=== PATIENT | male | born 1950 | race African-American/Black ===

== ENCOUNTER 2017-01-24 11:25 | Inpatient (IN) ==
[2017-01-24] MEDS ORDERED: ASPIRIN PO STA (11:34)
[2017-01-24] MEDS ORDERED: LASIX IV ONE (11:52)
[2017-01-24] MEDS ORDERED: NITROGLYCERIN TOP ONE (11:52)
--- NOTE | 2017-01-24 11:56 | PROVIDER DOCUMENTATION ---
HPI-Cardiac General - General Chief Complaint: Shortness of Breath Stated Complaint: SENT BY MD FOR EVAL Time Seen by Provider: 01/24/17 11:33 Source: patient, family Allergies/Adverse Reactions: Patient Allergies Allergy/AdvReac Type Severity Reaction Status Date / Time No Known Allergies Allergy Verified 01/24/17 12:13 Home Medications: Home Medication List Medication Instructions Recorded Confirmed Last Taken Type Aspirin [Aspirin EC] 81 mg PO DAILY 01/24/17 01/24/17 01/24/17 06:00 History Carvedilol [Coreg] 3.125 mg PO BID 01/24/17 01/24/17 01/24/17 06:00 History - History of Present Illness-Cardiac Nature of Presenting Problem: Patient is a 66 y/o M that presents with about a month of shortness of breath and chest heaviness. patient [place] [facility] [place] and been evaluated by who sent patient in today for admission to hospitalist for work up of possible heart failure. Patient has been have leg swelling (more on right leg) and has fatigue in which he has been falling asleep more. Denies fever/chills, back pain, or n/v Location: reports: substernal Quality of Pain: reports: pressure Severity in ED: moderate Onset/Duration: gradual, other (1 month) Timing: still present, getting worse Context/Activities at Onset: reports: none Modifying Factors: worse with: exercise, lying down, movement Palpitation Quality: N/A History of arrythmia: reports: none Recent use of:: reports: no stimulants Nitro Today/Relief: reports: no nitro taken today Aspirin Treatment Today: reports: no aspirin today Prior Chest Pain/Cardiac Workup: reports: echocardiography (01/16/17 ER of 35 to 40%) Associated Symptoms: reports: shortness of breath. denies: back pain, diaphoresis, dizziness, fatigue, fever/chills, nausea, vomiting Similar Symptoms Previously?: No Recently Seen Here or By Another Healthcare Provider: No Review of Systems - Adult - REVIEW OF SYSTEMS - ADULT Constitutional: denies: chills, fever Eyes: reports: no symptoms reported Ears, Nose, Mouth & Throat: reports: no symptoms reported Cardiovascular: reports: chest pain, edema, orthopnea. denies: palpitations, syncope Respiratory: reports: shortness of breath. denies: cough, wheezing Gastrointestinal: denies: abdominal pain, diarrhea, nausea, vomiting Genitourinary: reports: no symptoms reported Musculoskeletal: denies: back pain, joint pain, neck pain Integumentary: reports: no symptoms reported Neurological: reports: no symptoms reported Psychiatric: reports: no symptoms reported Endocrine: reports: no symptoms reported Hematologic/Lymphatic: reports: no symptoms reported Allergic/Immunologic: reports: no symptoms reported All Other Systems: Reviewed and Negative Past History - Adult - PAST MEDICAL HISTORY-ADULT Review of Records: reports: Old Records Reviewed, Nursing Assessment Review, Medications Reviewed - PRIOR SURGERIES/PROCEDURES Surgical/Procedure History: reports: reviewed, not pertinent - IMMUNIZATION STATUS Childhood Immunizations: See Nurse Assessment Flu Vaccine: See Nurse Assessment - FAMILY HISTORY Family History: reviewed, not pertinent - SOCIAL HISTORY Living Situation: family Physical Exam-General - PHYSICAL EXAM-ADULT Initial Vital Signs Reviewed: Yes - CONSTITUTIONAL General Appearance: alert, mild distress, moderate distress - EYES Eyes: PERRL/EOMI, pink conjunctivae - HEAD, EARS, NOSE, MOUTH & THROAT HENMT: normocephalic/atraumatic, moist mucous membranes, normal ENT inspection - NECK Neck: full range of motion, normal inspection. negative: lymphadenopathy - RESPIRATORY Respiratory: respiratory distress (mild), accessory muscle use, crackles ( bilateral bases), increased rate - CARDIOVASCULAR Cardiovascular: regular rate, rhythm, no gallop, no murmur - GASTROINTESTINAL (ABDOMEN) Abdominal Exam: normal bowel sounds, non tender, soft - MUSCULOSKELETAL Extremity: no calf tenderness, normal capillary refill, pedal edema (bilateral 1 to 2 plus) - SKIN Integumentary: normal color, warm/dry - NEUROLOGIC Neurologic: grossly normal, no motor/sensory deficits - PSYCHIATRIC Psych/Mental Status: normal mood/affect, normal thought content, normal thought process, oriented x 3 Progress - PLAN OF CARE/RESULTS Progress/Plan/Lab Results: Vital Signs Temp Pulse Resp BP Pulse Ox 01/24/17 12:57 99 01/24/17 11:35 97.7 F 90 16 153/96 99 No Known Allergies Allergy (Verified 01/24/17 12:13) Aspirin [Aspirin EC] 81 mg PO DAILY 01/24/17 Carvedilol [Coreg] 3.125 mg PO BID 01/24/17 Laboratory 01/24/17 01/24/17 01/24/17 11:59 11:59 11:59 WBC RBC Hgb Hct MCV MCH MCHC RDW Std Deviation Plt Count MPV Neut % (Auto) Lymph % (Auto) [place] % (Auto) Eos % (Auto) Baso % (Auto) Neut # (Auto) Lymph # (Auto) [place] # (Auto) Eos # (Auto) Baso # (Auto) PT 11.2 INR 1.06 PTT (Actin FS) 31.4 Sodium Potassium Chloride Carbon Dioxide Anion Gap BUN Creatinine Estimated GFR/1.73 m2 BUN/Creatinine Ratio Glucose Calculated Osmolality Calcium Magnesium Total Bilirubin AST ALT Alkaline Phosphatase Creatine Kinase Troponin T < 0.010 Eyg-Y-Ytzntjlcejx Pept 7447 H Total Protein Albumin Globulin Albumin/Globulin Ratio 01/24/17 01/24/17 11:59 11:59 WBC 5.98 RBC 4.61 L Hgb 13.2 L Hct 38.5 L MCV 83.5 MCH 28.6 MCHC 34.3 RDW Std Deviation 14.7 H Plt Count 174 MPV 9.5 Neut % (Auto) 43.8 Lymph % (Auto) 46.7 [place] % (Auto) 6.5 Eos % (Auto) 2.7 Baso % (Auto) 0.3 Neut # (Auto) 2.62 Lymph # (Auto) 2.79 [place] # (Auto) 0.39 Eos # (Auto) 0.16 Baso # (Auto) 0.02 PT INR PTT (Actin FS) Sodium 141 Potassium 4.0 Chloride 103 Carbon Dioxide 25 Anion Gap 13 BUN 17 Creatinine 1.2 Estimated GFR/1.73 m2 > 60 BUN/Creatinine Ratio 14 Glucose 82 Calculated Osmolality 282 Calcium 8.8 Magnesium 2.1 Total Bilirubin 0.35 AST 30 ALT 30 Alkaline Phosphatase 65 Creatine Kinase 80 Troponin T Ncb-L-Bqyptoxxpyo Pept Total Protein 6.2 L Albumin 3.6 Globulin 2.6 Albumin/Globulin Ratio 1.4 Orders Category Date Time Status Cardiac Monitoring DIRECTED Care 01/24/17 11:34 Active Saline Loc NOW Care 01/24/17 11:34 Active cxr [CHEST-PORTABLE] [RAD] Stat Exams 01/24/17 11:35 Draft CBC WITH ELECTRONIC DIFF [HEME] Stat Lab 01/24/17 11:59 Completed CK PROFILE [SP CHEM] Stat Lab 01/24/17 11:59 Completed COMPREHENSIVE METABOLIC PANEL [CHEM] Stat Lab 01/24/17 11:59 Completed MAGNESIUM [CHEM] Stat Lab 01/24/17 11:59 Completed PRO B-NATRIURETIC PEPTIDE Stat Lab 01/24/17 11:59 Completed PROTIME WITH INR [COAG] Stat Lab 01/24/17 11:59 Completed PTT [COAG] Stat Lab 01/24/17 11:59 Completed TROPONIN T Stat Lab 01/24/17 11:59 Completed Aspirin Med 01/24/17 11:34 Discontinued 325 mg PO STAT STA Furosemide [Lasix] Med 01/24/17 11:52 Discontinued 60 mg IV NOW ONE Nitroglycerin Med 01/24/17 11:52 Discontinued 1 inch TOP NOW ONE BIPAP Stat Oth 01/24/17 12:56 Active EKG [EKG] Stat Ther 01/24/17 11:34 Ordered [id number] paged Vital Signs Temp Pulse Resp BP Pulse Ox 01/24/17 12:57 99 01/24/17 11:35 97.7 F 90 16 153/96 99 No Known Allergies Allergy (Verified 01/24/17 12:13) Aspirin [Aspirin EC] 81 mg PO DAILY 01/24/17 Carvedilol [Coreg] 3.125 mg PO BID 01/24/17 Laboratory 01/24/17 01/24/17 01/24/17 11:59 11:59 11:59 WBC RBC Hgb Hct MCV MCH MCHC RDW Std Deviation Plt Count MPV Neut % (Auto) Lymph % (Auto) [place] % (Auto) Eos % (Auto) Baso % (Auto) Neut # (Auto) Lymph # (Auto) [place] # (Auto) Eos # (Auto) Baso # (Auto) PT 11.2 INR 1.06 PTT (Actin FS) 31.4 Sodium Potassium Chloride Carbon Dioxide Anion Gap BUN Creatinine Estimated GFR/1.73 m2 BUN/Creatinine Ratio Glucose Calculated Osmolality Calcium Magnesium Total Bilirubin AST ALT Alkaline Phosphatase Creatine Kinase Troponin T < 0.010 Qyh-D-Xxmjftciruk Pept 7447 H Total Protein Albumin Globulin Albumin/Globulin Ratio 01/24/17 01/24/17 11:59 11:59 WBC 5.98 RBC 4.61 L Hgb 13.2 L Hct 38.5 L MCV 83.5 MCH 28.6 MCHC 34.3 RDW Std Deviation 14.7 H Plt Count 174 MPV 9.5 Neut % (Auto) 43.8 Lymph % (Auto) 46.7 [place] % (Auto) 6.5 Eos % (Auto) 2.7 Baso % (Auto) 0.3 Neut # (Auto) 2.62 Lymph # (Auto) 2.79 [place] # (Auto) 0.39 Eos # (Auto) 0.16 Baso # (Auto) 0.02 PT INR PTT (Actin FS) Sodium 141 Potassium 4.0 Chloride 103 Carbon Dioxide 25 Anion Gap 13 BUN 17 Creatinine 1.2 Estimated GFR/1.73 m2 > 60 BUN/Creatinine Ratio 14 Glucose 82 Calculated Osmolality 282 Calcium 8.8 Magnesium 2.1 Total Bilirubin 0.35 AST 30 ALT 30 Alkaline Phosphatase 65 Creatine Kinase 80 Troponin T Axo-N-Tuljemgjueo Pept Total Protein 6.2 L Albumin 3.6 Globulin 2.6 Albumin/Globulin Ratio 1.4 Orders Category Date Time Status Cardiac Monitoring DIRECTED Care 01/24/17 11:34 Active Saline Loc NOW Care 01/24/17 11:34 Active cxr [CHEST-PORTABLE] [RAD] Stat Exams 01/24/17 11:35 Draft CBC WITH ELECTRONIC DIFF [HEME] Stat Lab 01/24/17 11:59 Completed CK PROFILE [SP CHEM] Stat Lab 01/24/17 11:59 Completed COMPREHENSIVE METABOLIC PANEL [CHEM] Stat Lab 01/24/17 11:59 Completed MAGNESIUM [CHEM] Stat Lab 01/24/17 11:59 Completed PRO B-NATRIURETIC PEPTIDE Stat Lab 01/24/17 11:59 Completed PROTIME WITH INR [COAG] Stat Lab 01/24/17 11:59 Completed PTT [COAG] Stat Lab 01/24/17 11:59 Completed TROPONIN T Stat Lab 01/24/17 11:59 Completed Aspirin Med 01/24/17 11:34 Discontinued 325 mg PO STAT STA Furosemide [Lasix] Med 01/24/17 11:52 Discontinued 60 mg IV NOW ONE Nitroglycerin Med 01/24/17 11:52 Discontinued 1 inch TOP NOW ONE BIPAP Stat Oth 01/24/17 12:56 Active EKG [EKG] Stat Ther 01/24/17 11:34 Draft - EKG 1 Time of EKG reading by physician:: 11:38 EKG Read and Signed by:: Zen Dominguez EKG Interpretation (*Must complete 3 of following elements*): Abnormal Rate: 94 Rhythm: Sinus Rhythm with occasional PVCs [place]: normal QRS: LBB (incomplete), poor R wave progression ST Wave: non-specific ST changes (T inversion V4,5,6 and Lead I) Prior EKG Comparison: no prior EKG - XRAY 1 XRAY Study: Chest Impression: Abnormal XRAY Interpretation: CMG, central pulmonary vascular prominence, granuloma in R middle or lower - CONSULTS/PCP/HOSPITALIST Notification #1 *Consult/PCP/Hospitalist*: ( hospitalist) Time Discussed: 13:43 Reason/Comments: at bedside to admit Consult Disposition: Admit Departure - Departure Time of Disposition Order: 13:43 DIAGNOSIS: Chest pressure Heart failure Qualifiers: Heart failure type: unspecified heart failure type Heart failure chronicity: acute Qualified Code(s): I50.9 - Heart failure, unspecified Disposition: ADMITTED INPATIENT 09 Certified Medical Emergency: Emergent Condition: Stable Referrals: Connor Dominguez [Primary Care Provider] - - Critical Care Note Total Time (mins): 35 Critical Care Statement: This patient required my direct personal management to treat or rule out processes, the absence of which, could potentiallly result in sudden, clinically significant life or limb threatening deterioration. Attestation - Scribe Verification/Attestation Scribe:: Ryan Jimenez Acting as Scribe for:: Zen Dominguez Scribe documention review:: This chart was documented by a scribe and accurately reflects the service the provider performed and the decisions made by the provider. Physician Attestation - Physician Attestation I, the provider, attest to the following statement:: Zen Dominguez Physician documentation Attestation:: This documentation recorded by the scribe accurately reflects the service I personally performed and the decisions made by me.
[2017-01-24 12:19] LABS: MANUAL DIFF NEEDED? NO
--- NOTE | 2017-01-24 12:28 | Diag Imaging Result Document ---
PROCEDURE NAME: CHEST-PORTABLE - 01/24/2017 AP PORTABLE CHEST AT 1145 HOURS: FINDINGS: There is cardiomegaly and central pulmonary vascular prominence. There are calcified nodes in both paula. There is a granuloma in the right middle lobe or lower lobe. No focal pulmonary opacities are present. IMPRESSION: Cardiomegaly.
[2017-01-24 12:30] LABS: INR 1.06; PROTIME 11.2 Seconds (9.2-11.7); PTT 31.4 Seconds (22.0-36.0)
[2017-01-24 12:34] LABS: BASO% 0.3 % (0.0-0.8); EOS# 0.16 X1000 (0.0-0.7); EOS% 2.7 % (0.0-10.0); HEMATOCRIT 38.5 % (42.0-52.0); HEMOGLOBIN 13.2 g/dL (14.0-18.0); LYMPH# 2.79 X1000 (1.2-3.4); LYMPH% 46.7 % (20.5-51.1); MCH 28.6 PG (27-31); MCHC 34.3 g/dL (33-37); MCV 83.5 FL (81-99); MONO# 0.39 X1000 (0.11-0.59); MONO% 6.5 % (1.7-9.3); MPV 9.5 FL (7.4-10.4); NEUT% 43.8 % (42.2-75.2); PLT 174 X1000 (130-400); RBC 4.61 XMIL (4.7-6.1)
[2017-01-24 12:41] LABS: AGAP 13; ALBUMIN 3.6 g/dL (3.5-5.0); ALKALINE PHOSPHATASE 65 U/L (32-122); BUN 17 mg/dL (8-22); CALCIUM 8.8 mg/dL (8.8-10.2); CHLORIDE 103 mmol/L (98-107); CK PROFILE 80 U/L (24-204); COSMO 282; GOT 30 U/L (10-34); GPT 30 U/L (10-44); MAGNESIUM 2.1 mg/dL (1.5-2.7); SODIUM 141 mmol/L (136-145); TCO2 25 mmol/L (25-35); TOTAL BILIRUBIN 0.35 mg/dL (0.20-1.00); TOTAL PROTEIN 6.2 g/dL (6.3-8.3)
--- NOTE | 2017-01-24 13:34 | EKG Report ---
Test Performed on : 01/24/2017 11:38:11 AM Test Reason : Chest Pain Blood Pressure : / mmHG Vent. Rate : 094 BPM Atrial Rate : 094 BPM P-R Int : 178 ms QRS Dur : 120 ms QT Int : 386 ms P-R-T Axes : 058 -10 144 degrees QTc Int : 482 ms Sinus rhythm. with occasional premature ventricular complexes. Possible Left atrial enlargement Incomplete left bundle branch block T wave abnormality, consider lateral ischemia Abnormal ECG No previous ECGs available Unconfirmed Result
[2017-01-24 14:11] LABS: ALLEN TEST YES; BE -0.4 mmoll (-3.0-3.0); BLOOD TYPE ARTERIAL; DRAW SITE R RADIAL; METHB 1.8 % (0.0-1.5); O2(CT) 18.8 mL/dL (15.0-23.0); PCO2(98.6) 33 mmHg (35-45); PO2(98.6) 102 mmHg (60-100); SAMPLE BLOOD; SAO2 99.6 % (95.0-100.0); THB 14.1 g/dL (11.5-17.4); pH(98.6) 7.45 (7.35-7.45)
[2017-01-24 14:12] LABS: MODALITY BI PAP
--- NOTE | 2017-01-24 14:34 | HISTORY AND PHYSICAL ---
HISTORY OF PRESENT ILLNESS: This is a 66-year-old who has really no significant past history and felt good, no surgery, no medical history, and really never went to the doctor. He recently went to [facility] with shortness of breath, was admitted there, and sounds like he had pulmonary venous hypertension and pulmonary edema. He was subsequently sent over here for cardiac tests. He saw Dr. Perez and had a myocardial perfusion scan done 01/16/2017. The patient developed chest pain during Lexiscan infusion. Nondiagnostic stress electrocardiogram myocardial profusion images revealed evidence of ischemia. There was a large size, severe grade, fixed defect in the inferior wall diagnostic of infarct. In addition, there is a fixed defect in the left ventricular apex. There is inferior wall hypokinesis. Left ventricular ejection fraction is about 40%. Inferior wall hypokinesis. Had an echocardiogram done on 01/16/2017 and his ejection fraction was 45% to 50%. Concentric left ventricular hypertrophy. Mild mitral regurgitation. Mild tricuspid regurgitation. There was mild aortic stenosis versus sclerosis associated with mild aortic regurgitation. FAMILY HISTORY: Noncontributory. SOCIAL HISTORY: . Denies any illicit drugs. REVIEW OF SYSTEMS: General: No weight gain or loss. No fever or chills. HEENT: Unremarkable. Respiratory: Increased work of breathing, increased orthopnea, increased paroxysmal nocturnal dyspnea over the last month. He has had recent testing and there is suggestion of possible coronary insufficiency or ischemia. On EKG upon presentation, there is some nonspecific T-wave inversion in the anterolateral leads with some PVCs. He does have incomplete left bundle-branch. PHYSICAL EXAMINATION: GENERAL: He is on BiPAP. VITAL SIGNS: Temperature 97.7 degrees, pulse 90, respirations 16, blood pressure 153/96. HEENT: The pupils are equal and round. NECK: CVP less than 10 cm water pressure from the angle of Lázaro and distended neck veins appreciated. CARDIOVASCULAR: PMI nondisplaced. I can hear a positive S3. Otherwise, regular rhythm and rate. I do not appreciate a murmur. ABDOMEN: Soft, nontender. No hepatojugular reflux. No hepatosplenomegaly. EXTREMITIES: Extremities have 1+ edema from the ankle to the mid swanson, symmetrical. LABORATORIES: White count 5980, hematocrit 38, platelet count 174,000. Sodium 141, potassium 4.0, chloride 103, bicarbonate 25, BUN 17, creatinine 1.2. Liver functions unremarkable. proBNP was 7447. Total protein 6.2. PT 11.2, PTT 31. Chest x-ray: Cardiomegaly. Central pulmonary vascular prominence. Calcified nodes in both paula. There is granuloma in the right middle lobe or lower lobe. No focal pulmonary opacity is appreciated. ASSESSMENT AND PLAN: Pulmonary venous hypertension, left ventricular systolic dysfunction. Recent echocardiogram and Lexiscan nuclear cardiac scan confirm this. I am going to diurese with some Lasix. His blood pressure is a little elevated at the present time, so will see if we can control the afterload and preload a little better. Currently, he is on aspirin and Coreg. Renal function has been good and will put him on an RINKU inhibitor. Will put him on 40 mg of Lasix IV q.12 for now. Will put him on a monitor. I do want to check his thyroid, B12, and folate, and we will check serial cardiac enzymes.
[2017-01-24] MEDS ORDERED: TYLENOL PO PRN (15:18)
[2017-01-24] MEDS ORDERED: ZOFRAN IV PRN (15:18)
[2017-01-24] MEDS: COREG PO SCH (20:49)
[2017-01-24] MEDS: PRINIVIL PO SCH (20:50)
[2017-01-24] MEDS ORDERED: LASIX PO SCH (21:00)
[2017-01-25] MEDS: LASIX IV SCH ×2 (01:29→15:35)
[2017-01-25 05:32] LABS: MANUAL DIFF NEEDED? NO
[2017-01-25 05:44] LABS: BASO% 0.5 % (0.0-0.8); EOS# 0.26 X1000 (0.0-0.7); EOS% 4.7 % (0.0-10.0); HEMATOCRIT 39.3 % (42.0-52.0); HEMOGLOBIN 13.7 g/dL (14.0-18.0); LYMPH# 1.78 X1000 (1.2-3.4); LYMPH% 32.1 % (20.5-51.1); MCH 28.2 PG (27-31); MCHC 34.9 g/dL (33-37); MCV 80.9 FL (81-99); MONO# 0.45 X1000 (0.11-0.59); MONO% 8.1 % (1.7-9.3); NEUT% 54.6 % (42.2-75.2); PLT 181 X1000 (130-400); RBC 4.86 XMIL (4.7-6.1)
[2017-01-25 05:45] LABS: HEMOGLOBIN A1C 5.1 % (4.8-6.0)
[2017-01-25 05:57] LABS: MAGNESIUM 1.9 mg/dL (1.5-2.7)
[2017-01-25 06:20] LABS: FREE T4 1.68 ng/dL (0.93-1.70)
--- NOTE | 2017-01-25 07:22 | PROGRESS NOTE ---
DATE: 01/25/2017 SUBJECTIVE: Mr. Pandey is feeling much better. Breathing much better. Able to lay flat now and breathe comfortably. No chest pain. No fever. OBJECTIVE: Temperature 97.9 degrees, pulse 79, blood pressure 149/78. CVP appears less than 6 cm. No distended neck veins. Lungs are clear anterior and posterior. Cardiovascular: Regular rhythm and rate without murmur or S3. Abdomen is soft. Skin is warm and dry. Urine output over 5 L. LABORATORY DATA: Laboratory on his presentation. Serum creatinine was 1.2. Electrolytes look pretty good. Magnesium was 1.9. Lab from this morning: White count 5550, hematocrit 39, platelet count 181,001. Magnesium 1.9. Iron was 58. ASSESSMENT AND PLAN: Pulmonary venous hypertension. Left ventricular systolic dysfunction. Recent echocardiogram and Lexiscan nuclear scan confirmed he has some systolic dysfunction. Blood pressure was a little elevated at presentation. He presented with pulmonary venous hypertension. I started him on an RINKU inhibitor and, after diuresed, he appears to be doing better. We will continue his RINKU inhibitor and diuretic. He appears to be doing better. He has seen Dr. Perez, I believe in the past, so we will make sure Cardiology is able to evaluate, but he may get to go home later today if he continues to do this well. We will try to wean him off O2.
--- NOTE | 2017-01-25 07:22 | EKG Report ---
Test Performed on : 01/25/2017 06:59:53 AM Test Reason : Heart Failure Admission Blood Pressure : / mmHG Vent. Rate : 065 BPM Atrial Rate : 065 BPM P-R Int : 172 ms QRS Dur : 124 ms QT Int : 510 ms P-R-T Axes : 021 -12 176 degrees QTc Int : 530 ms Normal sinus rhythm. Nonspecific intraventricular conduction delay ST & Marked T wave abnormality, consider anterolateral ischemia Abnormal ECG When compared with ECG of 24-JAN-2017 11:38, (Unconfirmed) premature ventricular complexes. are no longer present Inverted T waves have replaced nonspecific T wave abnormality in Inferior leads T wave inversion more evident in Anterior leads Confirmed by Noel URIOSTEGUI, Yousif Jang ([id number]) on 01/25/2017 5:23:21 PM
[2017-01-25] MEDS: PRINIVIL PO SCH ×2 (09:02→20:32)
[2017-01-25] MEDS: COREG PO SCH ×2 (09:02→20:32)
[2017-01-25] MEDS: LOVENOX SUBQ SCH (09:02)
[2017-01-25] MEDS: ASPIRIN PO SCH (09:02)
[2017-01-25] MEDS ORDERED: HEPARIN 1000 UNITS/NS 1,000 ML ONE (13:38)
[2017-01-25] MEDS ORDERED: CLAVE PUMP SET NO FILTER 12260 ONE (13:45)
[2017-01-25] MEDS ORDERED: CLAVE TWINSITE 32 IN 11959 ONE (13:45)
[2017-01-25] MEDS ORDERED: NS 1,000 ML ONE (13:45)
[2017-01-25] MEDS ORDERED: DILAUDID ONE (13:56)
[2017-01-25] MEDS ORDERED: VERSED ONE (13:56)
--- NOTE | 2017-01-25 15:18 | CARDIAC CATH REPORT ---
PROCEDURE NAME: - INDICATION: Systolic heart failure with a fixed inferior defect on stress test. PROCEDURES PERFORMED: 1. Left heart catheterization. 2. Selective coronary angiography. 3. Left ventriculogram. PROCEDURE IN DETAIL: Mr. Pandey was brought to the catheterization laboratory in a fasting state. Yousif's test was proved adequate. He was prepped in usual fashion. A 5-[place] sheath was placed in the right radial artery via true Seldinger technique. Radial cocktail was administered. Catheters were introduced. Hemodynamic measurements were made in the ascending thoracic aorta. Coronary angiography was performed in multiple views using JL 3.5 and JR4 diagnostic catheters. Left heart catheterization was performed using the JR4. At conclusion of procedure, all sheaths and catheters removed. TR band was left inflated at 9 mL of air. No apparent complications. Good capillary refill. Good hemostasis, 80 mL of IV contrast. FINDINGS: 1. The left main has minimal luminal irregularities. 2. Left anterior descending has mild disease up to around 30 to 40% in the proximal and early mid vessel portions. There is a severe lesion in the late mid to early proximal LAD of around 90%. Thereafter the left anterior descending appears to have mild diffuse luminal irregularities. There is a, I believe it is the 3rd diagonal that appears to have a long area of sequential severe lesions of around 80-90%. Following that the vessel appears to be around a 2-0 vessel with mild luminal irregularities. 3. Circumflex originates from the left main. The proximal portion of the vessel appears to have mild to moderate disease leading into a mid vessel lesion of 80-90%. This vessel then continues on in a moderate size vessel with mild luminal irregularities. It terminates in an OM branch type distribution. At the takeoff of the preceding 3rd OM there is severe ostial disease of around 80-90%. The remainder of the circumflex territory has mild luminal irregularities. 4. The right coronary artery is occluded very proximally. There are [id number] right collaterals predominantly it appears coming off of septal branches. This reconstitutes the latter portions of the right coronary artery. Overall, they are somewhat difficult to visualize. 5. Left ventriculogram demonstrated an EF of what appeared to be around 40%. There is global hypokinesis. The inferior wall was not well visualized on this study. 6. The aortic blood pressure was 95/60. Left ventricle pressure is 115/7 with an LVEDP of 20. ASSESSMENT: Mr. Pandey is a 66-year-old black male who has systolic heart failure. PLAN: He has multivessel coronary disease involving all 3 major territories. He needs a consideration for coronary bypass. I have discussed the case with Dr. Perez. He will take over further care of the patient. He will need advancement of his heart failure medications as well.
[2017-01-26 05:22] LABS: HEMATOCRIT 38.7 % (42.0-52.0); HEMOGLOBIN 13.1 g/dL (14.0-18.0); MCHC 33.9 g/dL (33-37); MCV 82.7 FL (81-99); RBC 4.68 XMIL (4.7-6.1)
[2017-01-26 05:33] LABS: AGAP 10; BUN 18 mg/dL (8-22); CALCIUM 8.6 mg/dL (8.8-10.2); CHLORIDE 101 mmol/L (98-107); COSMO 275; MAGNESIUM 2.1 mg/dL (1.5-2.7); POTASSIUM 3.8 mmol/L (3.5-5.1); SODIUM 137 mmol/L (136-145); TCO2 26 mmol/L (25-35)
[2017-01-26] MEDS: LOVENOX SUBQ SCH (08:03)
[2017-01-26] MEDS: ASPIRIN PO SCH (08:03)
[2017-01-26] MEDS: PRINIVIL PO SCH ×2 (08:03→20:50)
[2017-01-26] MEDS: COREG PO SCH ×2 (08:03→20:50)
[2017-01-26] MEDS ORDERED: LASIX IV ONE (08:32)
--- NOTE | 2017-01-26 09:13 | PROGRESS NOTE ---
DATE: 01/26/2017 SUBJECTIVE: Mr. Pandey is comfortable, still not breathing the way he wants to, but it is definitely improved. You can tell that the swelling is going down in his ankles. OBJECTIVE: Vital Signs: Temp 97.8 degrees, pulse 76, respirations 18, blood pressure 119/58. Respiratory: Lungs are clear anterolateral. Cardiovascular exam: Regular rhythm and rate without murmur or S3. Abdomen: Soft. Skin: Warm and dry. : Urine output 500 mL. LAB: White count 4770, hematocrit 38, platelet count 162,000. Chemistry: Sodium 137, potassium 3.8, chloride 101, bicarbonate 26, BUN 18, creatinine 1.1. Troponin less than 0.01. ASSESSMENT AND PLAN: 1. He had a heart catheterization yesterday. He has multi-vessel coronary artery disease involving three major territories. Needs consideration for bypass with Dr. Perez. Will discuss. I think he is asking about [facility]. Continue to adjust medications for systolic heart failure. 2. Systolic heart failure. Continue diuresis and afterload and preload adjustment 3. Nutrition looks good. Looking at his blood pressures, they look optimal. Continue to diurese. Still a little short of breath. We will give him some Lasix again today. Creatinine looks good. We will give him 40 mg IV push of Lasix today as well.
--- NOTE | 2017-01-26 13:07 | PROGRESS NOTE ---
DATE: 01/26/2017 CHIEF COMPLAINT: Chest heaviness. SUBJECTIVE: Mr. Pandey underwent heart catheterization yesterday. Today he is feeling relatively well. He is not having any chest tightness or pressure. He has been up and about in his room. The patient ruled out for myocardial infarction. OBJECTIVE: Vital signs: Blood pressure is 119/58, temperature is 97.8, pulse 76, respirations 19. General: His right radial pulse looks normal. HEENT: Unremarkable. Chest: Clear to auscultation and percussion. Cardiac: Heart sounds are regular and rhythmic. Abdomen: Nontender, no masses, no hepatomegaly. Extremities: No edema. Neurological: He moves 4 extremities. BLOOD WORK: Today, January 26: Sodium 137, potassium 3.8, BUN 18, creatinine 1.1. Magnesium is 2.1. His hemoglobin is 13.1, hematocrit 38.7. IMPRESSION: 1. Patient who presented with chest heaviness consistent with crescendo angina pectoris. His heart catheterization done yesterday by Dr. Grimes reveals 3-vessel disease, total occlusion of the right coronary artery, severe distal stenosis of the LAD as well as one of the major diagonal branches. There are severe lesions in the circumflex system. The patient may benefit by a quadruple coronary artery bypass procedure. 2. History of tobacco use. 3. abnormal myocardial perfusion with stress test. 4. systolic congestive heart failure/ischemic cardiomyopathy. RECOMMENDATION: From a cardiology viewpoint, we will recommend to observe him another day in the hospital. He may need a referral to Cardiac Surgery over the next few days. Of note, his stress test was abnormal on January 16. We will see how he does. Dr. Cohen has given him one dose of Lasix because he appeared to be slightly congested. His proBNP was 5117. At any rate, we will see how he does overnight. Of note, his lipid panel from January 25 showed triglycerides 78, cholesterol 221, LDL 161, HDL 56. The patient definitely needs to be placed on statin medication. Will go ahead and do that. Further advice will be forthcoming. MTDD
[2017-01-26] MEDS: LASIX IV SCH (18:14)
[2017-01-26] MEDS: LIPITOR PO SCH (20:49)
[2017-01-26] MEDS ORDERED: LASIX IV SCH (22:00)
[2017-01-27] MEDS: LASIX IV SCH ×2 (05:50→18:09)
[2017-01-27 05:54] LABS: AGAP 12; BUN 19 mg/dL (8-22); CALCIUM 8.8 mg/dL (8.8-10.2); CHLORIDE 99 mmol/L (98-107); COSMO 278; SODIUM 138 mmol/L (136-145); TCO2 27 mmol/L (25-35)
--- NOTE | 2017-01-27 08:06 | PROGRESS NOTE ---
DATE: 01/27/2017 SUBJECTIVE: Mr. Pandey had a good night. He feels like he is breathing a little better. Feels like he has got less dyspnea on exertion. PHYSICAL EXAMINATION: Vital Signs: Temperature 97.9 degrees, pulse 70, respirations 18, blood pressure 133/82. HEENT: Pupils are equal and round. Lungs: Clear in all lung montesinos. Cardiovascular Examination: Regular rhythm and rate without murmur or S3. Abdomen: Soft. Skin: Warm and dry. Is and Os: Urine output was 2000 mL. He has been net negative at least 3 L. LAB: Reviewed from yesterday. Hematocrit was stable. Chemistries from this morning, sodium 138, potassium 4, chloride 99, bicarb 27, BUN 19, creatinine 1.2. ASSESSMENT AND PLAN: 1. Chest pain in the past. Appears to have 3 vessel coronary artery disease. Set him up for evaluation for bypass. Family would like to go to [facility], Dr. Leyva. See if we can get that set up. I believe that will probably be set up as an outpatient. 2. Congestive heart failure, systolic. Heart failure with reduced ejection fraction. I want to try and diurese a little more. He seems to be clinically improving as far as his breathing goes. I am watching his creatinine. It is 1.2 today. 3. History of tobacco use, on nicotine patch. 4. Nutrition looks good. 5. Note to review his catheterization. He has multivessel disease involving 3 major territories. His electrocardiogram is with nonspecific T-wave inversion in the anterolateral leads.
[2017-01-27] MEDS: PRINIVIL PO SCH ×2 (08:11→20:19)
[2017-01-27] MEDS: LOVENOX SUBQ SCH (08:11)
[2017-01-27] MEDS: ASPIRIN PO SCH (08:11)
[2017-01-27] MEDS: COREG PO SCH ×2 (08:11→20:19)
--- NOTE | 2017-01-27 08:15 | Diag Imaging Result Document ---
PROCEDURE NAME: CHEST-2 VIEWS - 01/27/2017 FRONTAL AND LATERAL CHEST, TWO VIEWS: COMPARISON: Compared to 01/24/2017. FINDINGS: The lungs are well expanded. The heart is not enlarged. The vessels are not distended. No pneumonia. No pleural effusions. There is a granuloma in the left base and there are small calcified hilar lymph nodes. There are also granuloma in the right lung. IMPRESSION: No congestive failure.
--- NOTE | 2017-01-27 09:49 | PROGRESS NOTE ---
DATE: 01/27/2017 CHIEF COMPLAINT: Shortness of breath. No changes overnight. SUBJECTIVE: The patient feels somewhat better. He has not had any episode of chest pain. His breathing is somewhat more comfortable after he got Lasix. Chest x-ray done today shows that there is no congestive heart failure, at least by radiographic criteria. OBJECTIVE: Vital signs: Blood pressure is 126/89, temperature 97.6, pulse 71, respirations 18. General: He is awake, alert, oriented, in no distress. HEENT: Unremarkable. Chest: Clear to auscultation and percussion. Cardiac: Heart sounds are regular and rhythmic. No gallop or murmur. Abdomen: Nontender. Soft, no masses, no hepatomegaly. Extremities: Show no edema. The radial artery site looks fine. Good pulses. Neurologic: Moves 4 extremities. No weakness. Gait is normal. DIAGNOSTIC DATA: White count 4770, hemoglobin 13.1, hematocrit 38.7, sodium 138, potassium 4.0, BUN 19, creatinine 1.2. IMPRESSION: 1. Patient who presented with increasing dyspnea and angina pectoris. Heart catheterization reveals multi vessel coronary artery disease. The patient is probably a good candidate for coronary bypass surgery. 2. Systolic congestive heart failure. Ejection fraction in the 40% range, by nuclear imaging, 45% by echocardiogram. 3. Abnormal myocardial perfusion stress test. 4. History of tobacco use. RECOMMENDATIONS: From a cardiology viewpoint, the patient appears to be relatively more stable now. We will continue present therapy, as outlined Dr. Perez and Dr. Grimes. He is on lisinopril, furosemide, carvedilol. We will follow his hospital course. Hopefully, he will be referred to cardiovascular surgery within the next 48 hours.
[2017-01-27] MEDS: LIPITOR PO SCH (20:19)
[2017-01-28] MEDS: LASIX IV SCH (06:07)
[2017-01-28 07:45] VITALS: BP 108/58
[2017-01-28] MEDS: ASPIRIN PO SCH (08:26)
[2017-01-28] MEDS: LOVENOX SUBQ SCH (08:26)
[2017-01-28] MEDS: COREG PO SCH (08:26)
[2017-01-28] MEDS: PRINIVIL PO SCH (08:26)
--- NOTE | 2017-01-29 06:58 | DISCHARGE SUMMARY ---
ADMISSION DATE: 01/24/2017 DISCHARGE DATE: 01/28/2017 DATE OF ADMISSION: 01/24/2017. DATE OF DISCHARGE: Anticipate being discharged on 01/28/2007. COURSE IN HOSPITAL: This is a 66-year-old with no significant past medical history, who felt good. No surgery, no medical history. Never went to the doctor. Recently went to [facility] with shortness of breath. Admitted there. Sounds like he had pulmonary venous hypertension and pulmonary edema. He subsequently came here for cardiac test under Dr. Perez and had a myocardial perfusion scan done on 01/16/2017 and he developed chest pain during Lexiscan perfusion test. Nondiagnostic stress electrocardiogram, myocardial perfusion images revealed evidence of ischemia, a large size severe grade fixed defect in the inferior wall diagnostic of infarct. In addition, he had a fixed defect of the left ventricle apex. There was inferior wall hypokinesis. Left ventricular ejection fraction of 40%. Inferior wall hypokinesis. Had an echocardiogram done 01/16/2017 and his section fraction was 45-50% at that time. Concentric left ventricular hypertrophy. Mild mitral regurgitation. Mild tricuspid regurgitation. There was mild aortic stenosis versus sclerosis. We did diurese him when he came in and his breathing seemed to improve. Underwent a left heart catheterization. Found 3 vessel disease. [place] he needed to be evaluated by cardiovascular surgery. Suspect he may need bypass surgery. He felt better, breathing much better. Decreased orthopnea, decreased dyspnea on exertion. Chest x-ray from 01/27/2017 showed improvement in pulmonary venous hypertension. [place] he could probably go home on 01/28/2017. DISCHARGE MEDICATIONS: 1. We will keep him on some Lasix probably q.a.m. His creatinine was stable at 1.1 and 1.2. 2. Aspirin 81 mg daily. 3. Lipitor 80 mg at bedtime. 4. Coreg 3.125 mg b.i.d. 5. Lasix was given 40 mg p.o. q.a.m. 6. Prinivil has been started 10 mg b.i.d., and I think we are setting him up to go to [facility] to see Dr. Leyva, cardiovascular surgery. Will discuss with Dr. Perez and follow up with Dr. Perez as well.
--- NOTE | 2017-02-04 02:30 | DISCHARGE SUMMARY ---
ADMISSION DATE: 01/24/2017 DISCHARGE DATE: 01/28/2017 DISCHARGE SUMMARY ADDENDUM: The patient was admitted with shortness of breath, pedal edema bilaterally. BMP noted was 7447. Patient documented to have left ventricular systolic dysfunction. Treatment was provided with IV Lasix. The patient had a heart cath to confirm his ejection fraction of 40% with global hypokinesis, so he has systolic congestive heart failure with reduced ejection fraction. He also had 3-vessel disease, so has ischemic cardiomyopathy, as well, so I would add that--ischemic cardiomyopathy, and that is probably acute on chronic systolic heart failure.
== END 2017-01-28 12:09 | disposition home or self-care (01) | DRG 286 ==
LOC: ED 11:25 → EDIPHOLD 15:08 → 3S 17:20
PROVIDERS: ATTEND Emergency Medicine
PROC: 4A023N7 Measurement of Cardiac Sampling and Pressure, Left Heart, Percutaneous Approach (ICD-10-PCS; principal; 2017-01-24)
PROC: B2111ZZ Fluoroscopy of Multiple Coronary Arteries using Low Osmolar Contrast (ICD-10-PCS; 2017-01-24)
PROC: B2151ZZ Fluoroscopy of Left Heart using Low Osmolar Contrast (ICD-10-PCS; 2017-01-24)
DX: I25.119 Atherosclerotic heart disease of native coronary artery with unspecified angina pectoris (principal); I50.23 Acute on chronic systolic (congestive) heart failure; I27.2 Other secondary pulmonary hypertension; I08.3 Combined rheumatic disorders of mitral, aortic and tricuspid valves; I44.7 Left bundle-branch block, unspecified; I25.5 Ischemic cardiomyopathy; Z79.899 Other long term (current) drug therapy; Z79.82 Long term (current) use of aspirin
CPT/HCPCS: 36415; 71010; 71020; 80048; 80053; 80061; 82550; 82607; 82728; 82746; 82805; 83036; 83540; 83550; 83721; 83735; 83880; 84439; 84443; 84484; 85025; 85027; 85610; 85730; 93005; 93010; 93458; 94660; 94761; 96374; J1170; J1644; J1650; J1940; J2250; J7030; Q9967

== ENCOUNTER 2020-01-08 05:27 | Inpatient (IN) ==
--- NOTE | 2020-01-04 10:47 | EKG Report ---
Test Performed on : 01/04/2020 10:33:29 AM Test Reason : PAT Blood Pressure : / mmHG Vent. Rate : 065 BPM Atrial Rate : 065 BPM P-R Int : 168 ms QRS Dur : 104 ms QT Int : 426 ms P-R-T Axes : 043 006 085 degrees QTc Int : 443 ms Normal sinus rhythm. Nonspecific T wave abnormality Abnormal ECG When compared with ECG of 25-JAN-2017 06:59, QRS duration has decreased T wave inversion no longer evident in Inferior leads T wave inversion no longer evident in Anterior leads QT has shortened Confirmed by Ashly Reynolds MD ([id number]) on 01/04/2020 4:15:52 PM
[2020-01-04 11:04] LABS: BASO# 0.03 X1000 (0.0-0.2); BASO% 0.6 % (0.0-0.8); EOS# 0.32 X1000 (0.0-0.7); EOS% 6.2 % (0.0-10.0); LYMPH# 2.16 X1000 (1.2-3.4); LYMPH% 41.9 % (20.5-51.1); MCH 27.5 PG (27-31); MCHC 33.3 g/dL (33-37); MCV 82.6 FL (81-99); MONO# 0.63 X1000 (0.11-0.59); MONO% 12.2 % (1.7-9.3); MPV 9.6 FL (7.4-10.4); NEUT# 2.02 X1000 (1.4-6.5); NEUT% 39.1 % (42.2-75.2); PLT 171 X1000 (130-400); RBC 5.45 XMIL (4.7-6.1); RDW 15.5 % (11.5-14.5); WBC 5.16 X1000 (4.8-10.8)
[2020-01-04 11:39] LABS: AGAP 7; BUN 17 mg/dL (8-22); CALCIUM 8.8 mg/dL (8.8-10.2); CHLORIDE 103 mmol/L (98-107); COSMO 278; CREATININE 1.3 mg/dL (0.7-1.2); ESTIMATED GFR > 60; GLUCOSE 75 mg/dL (70-104); POTASSIUM 4.3 mmol/L (3.5-5.1); SODIUM 139 mmol/L (136-145); TCO2 29 mmol/L (25-35)
[2020-01-08] MEDS ORDERED: ENTEREG ONE (05:54)
[2020-01-08] MEDS ORDERED: LR 1,000 ML ONE ×3 (05:54→12:39)
[2020-01-08] MEDS ORDERED: INVANZ 1 GM/NS 1 GM/50 ML IVPB ONE (05:54)
[2020-01-08] MEDS ORDERED: SENSORCAINE 0.25%/EPI 1:200,000 ONE (06:30)
[2020-01-08] MEDS ORDERED: DIPRIVAN 1% ONE (06:31)
[2020-01-08] MEDS ORDERED: XYLOCAINE-MPF 2% ONE (06:32)
[2020-01-08] MEDS ORDERED: SUFENTA ONE (06:34)
[2020-01-08] MEDS ORDERED: SODIUM CHLORIDE 0.9% 10 ML ONE (07:04)
[2020-01-08] MEDS ORDERED: MARCAINE 0.25% PF ONE (07:04)
[2020-01-08] MEDS ORDERED: EXPAREL 1.3% ONE (07:04)
[2020-01-08] MEDS ORDERED: NEO-SYNEPHRINE ONE (07:30)
[2020-01-08] MEDS ORDERED: EPHEDRINE ONE ×2 (07:30→08:29)
[2020-01-08 08:41] LABS: URINE SOURCE CATH
[2020-01-08] MEDS ORDERED: NORCURON ONE (08:44)
[2020-01-08] MEDS ORDERED: STERILE WATER INJ. ONE (08:44)
[2020-01-08 08:54] LABS: BILIRUBIN URINE NEGATIVE (NEGATIVE); BLOOD URINE NEGATIVE (NEGATIVE); COLOR YELLOW; GLUCOSE URINE NEGATIVE (NEGATIVE); KETONE URINE NEGATIVE (NEGATIVE); LEUKOCYTES URINE NEGATIVE (NEGATIVE); NITRITE URINE NEGATIVE (NEGATIVE); PH URINE 7.5; PROTEIN URINE NEGATIVE (NEGATIVE); SP GRAVITY URINE 1.016; TURBIDITY URINE CLEAR (CLEAR); UR EPITHELIAL CELLS <10 /HPF (<10); URINE BACTERIA NEGATIVE /HPF; URINE RBC <10 /HPF (<10); URINE WBC <10 /HPF (<10); UROBILINOGEN URINE NORMAL (NORMAL)
[2020-01-08] MEDS ORDERED: BRIDION ONE (11:57)
[2020-01-08] MEDS ORDERED: OFIRMEV 1000 MG/ISOTONIC SOLN 1,000 MG/100 ML BOTTLE ONE (12:25)
[2020-01-08] MEDS ORDERED: ZOFRAN IV PRN (13:17)
[2020-01-08] MEDS ORDERED: ULTRAM PO PRN (13:17)
[2020-01-08] MEDS: OFIRMEV 1000 MG/ISOTONIC SOLN 1,000 MG/100 ML BOTTLE IV SCH (17:45)
--- NOTE | 2020-01-08 20:24 | OPERATIVE NOTE ---
PROCEDURE DATE: 01/08/2020 PREOPERATIVE DIAGNOSIS: Proximal rectal cancer. POSTOPERATIVE DIAGNOSIS: Proximal rectal cancer. PROCEDURE PERFORMED: Robot-assisted laparoscopic low-anterior resection with mobilization of the descending colon. SURGEON: Kitty Jones MD. ANESTHESIA: General with a TAP block. ESTIMATED BLOOD LOSS: 50 mL. SPECIMENS: Sigmoid colon and proximal rectum. OPERATIVE FINDINGS: There was a tattooed lesion at the rectosigmoid junction which tattoo extending to the proximal rectum. Both segments were well perfused. There was no leak on leak test. OPERATIVE NOTE: Risks, benefits, and alternatives were discussed with patient, and he consented to the procedure. Seen preoperatively, surgical site was confirmed. He was taken to the operating room and placed in supine position. General anesthesia was induced. He was then placed in lithotomy position. Valencia catheter was placed. After a time-out, a digital rectal examination was performed. We attempted a rigid proctoscopy, but he had a lot of liquid stool and we could not palpate the lesion. As such, we prepped his abdomen with chlorhexidine solution and draped in the usual fashion after a TAP block was performed. We placed a camera trocar below the level of the umbilicus in the midline and insufflated the abdomen. A stapler trocar 12 mm was placed in the right lower quadrant between the ASIS and the umbilicus. We then placed 2 additional robotic trocars, left side of the abdomen, staggering in slightly, and an assisted 5 mm trocar in the right upper quadrant. He was then placed in Trendelenburg. We mobilized the small bowel out of the pelvis and docked the robot. We retracted the colon anteriorly. We did have to laparoscopically take down a lot of omental adhesions, presumably from history of diverticulitis that was not reported. There was no evidence of metastatic disease in the abdomen. We then identified the pedicle and highly encircled this, and after identifying the ureter through a medial to lateral approach, we divided the pedicle. We then continued our medial and lateral dissection inferiorly and cephalad. We carried our dissection distally until we reached an area the proximal rectum that was beyond the ink tattoo and encircled this with a [place] drain. We then continued our lateral dissection and our proximal dissection, again protecting the retroperitoneal structures which were easily identified. A firefly perfusion test was performed. We noted an area of demarcation proximally. The distal rectum was well perfused as well. A blue- load stapler, 2 fires was used to transect the proximal rectum. We then made a specimen extraction site in the left lower quadrant in a muscle-splitting fashion and placed an Bassam retractor. A pursestring device was used and specimen was removed. A 28 mm anvil was placed and the epiploic fat was mobilized off of this. There was a diverticulum here that we incorporated into our plane donut. The remainder of the colon was healthy. At this point, we dropped the colon back in the abdomen, occluded our Bassam, and re-insufflated the abdomen. A 28 mm sizer was passed up to the staple line, followed by the EEA stapler, and a stapled end-to-end anastomosis was performed. Both donuts were intact. The submerged leak test was performed and it was negative for leak. There was no tension whatsoever on the colon and both were well perfused. Please also note that we had mobilized the descending colon highly to provide a tension-free anastomosis. At this point, we irrigated noting hemostasis. We removed our trocars. We closed the fascia and trocar sites with 0 Vicryl, and the fascia at the specimen extraction was closed with 0 PDS. The skin was closed with 4-0 Monocryl. Dermabond was applied. Counts were correct. His Valencia catheter urine was clear. At the end of the case, he was awoken and transferred to Recovery. I spoke to the family. Counts were correct at the end of the case. cc: Kitty Jones MD [facility]
[2020-01-08] MEDS: LIPITOR PO SCH (20:47)
[2020-01-08] MEDS: PERIDEX MT SCH (20:47)
[2020-01-08] MEDS: COREG PO SCH (20:47)
[2020-01-09] MEDS: LR 1,000 ML IV SCH ×4 (01:05→16:10)
[2020-01-09] MEDS: OFIRMEV 1000 MG/ISOTONIC SOLN 1,000 MG/100 ML BOTTLE IV SCH ×3 (01:20→12:14)
--- NOTE | 2020-01-09 06:23 | GENERAL SURGERY PROGRESS NOTE ---
DATE: 01/09/2020 SUBJECTIVE: Patient seems to be doing well after his colectomy. OBJECTIVE: Vital Signs: Patient is currently afebrile. His vital signs are stable. General: No acute distress. Cardiovascular: Regular rate and rhythm. Lungs: Grossly clear. Abdomen: Soft. Appropriately tender with some bowel sounds auscultated. Abdomen is nondistended. ASSESSMENT AND PLAN: A 69-year-old gentleman status post robot assisted low anterior resection. Postoperative state at this time, Patient seems to be doing well. He tolerated his clear liquids. We will advance him to full liquids. He is on Lovenox and Invanz which should stop today, His Valencia catheter should be removed today. He has got SCD's on. We will continue to monitor him. cc: MD Kitty Haji MD MTDSim
[2020-01-09 06:46] LABS: HEMATOCRIT 42.2 % (42.0-52.0); HEMOGLOBIN 14.1 g/dL (14.0-18.0); MCHC 33.4 g/dL (33-37); MCV 83.9 FL (81-99); MPV 9.6 FL (7.4-10.4); RBC 5.03 XMIL (4.7-6.1); WBC 9.7 X1000 (4.8-10.8)
[2020-01-09 07:01] LABS: AGAP 9; BUN 11 mg/dL (8-22); CALCIUM 8.8 mg/dL (8.8-10.2); CHLORIDE 104 mmol/L (98-107); COSMO 281; CREATININE 1.1 mg/dL (0.7-1.2); ESTIMATED GFR > 60; GLUCOSE 137 mg/dL (70-104); POTASSIUM 4.3 mmol/L (3.5-5.1); SODIUM 140 mmol/L (136-145); TCO2 27 mmol/L (25-35)
[2020-01-09] MEDS: COREG PO SCH ×2 (09:53→21:58)
[2020-01-09] MEDS: PERIDEX MT SCH ×2 (09:53→21:58)
[2020-01-09] MEDS: LOVENOX SUBQ SCH (09:53)
[2020-01-09] MEDS: MAG-OX PO SCH (09:53)
[2020-01-09] MEDS: ASPIRIN EC PO SCH (09:53)
[2020-01-09] MEDS: INVANZ 1 GM/NS 1 GM/50 ML IVPB IV SCH (09:54)
[2020-01-09] MEDS: LIPITOR PO SCH (21:58)
[2020-01-10] MEDS: LR 1,000 ML IV SCH (05:38)
--- NOTE | 2020-01-10 07:00 | GENERAL SURGERY PROGRESS NOTE ---
DATE: 01/10/2020 SUBJECTIVE: The patient seems to be doing well. OBJECTIVE: Vital Signs: The patient is currently afebrile. His vital signs are stable. General Examination: No acute distress. Cardiovascular: Regular rate and rhythm. Lungs: Grossly clear. Abdomen: Soft. Bowel sounds auscultated. Minimal tenderness. ASSESSMENT AND PLAN: A 69-year-old gentleman, currently postoperative day #2 from laparoscopic robot-assisted low anterior resection. Postoperative state. At this time, he has already had a bowel movement. He is tolerating a regular diet. If he seems to do okay at lunch, may consider discharge today versus tomorrow. cc: MD Kitty Haji MD
[2020-01-10] MEDS: COREG PO SCH (09:23)
[2020-01-10] MEDS: PERIDEX MT SCH (09:23)
[2020-01-10] MEDS: MAG-OX PO SCH (09:23)
[2020-01-10] MEDS: INVANZ 1 GM/NS 1 GM/50 ML IVPB IV SCH (09:23)
[2020-01-10] MEDS: ASPIRIN EC PO SCH (09:23)
[2020-01-10] MEDS: LOVENOX SUBQ SCH (09:24)
[2020-01-10 13:59] VITALS: BP 159/94
--- NOTE | 2020-01-19 12:37 | DISCHARGE SUMMARY ---
ADMISSION DATE: 01/08/2020 DISCHARGE DATE: 01/10/2020 PROCEDURE PERFORMED: Robot-assisted low-anterior resection. ADMITTING DIAGNOSIS: Sigmoid rectal carcinoma. DISCHARGE DIAGNOSIS: Sigmoid rectal carcinoma. HISTORY OF PRESENT ILLNESS: This is a 69-year-old gentleman who was found to have a proximal rectal distal sigmoid cancer with no evidence of metastatic disease. HOSPITAL COURSE: He was taken to the operating room on the day of his admission for the above procedure. For details, please see dictated operative note. Postoperatively, he did well. His pain was controlled with minimal medications, really only Tylenol. His Valencia was removed and he was able void. He had return of bowel function, was able to tolerate a diet by day 2. He was continued on prophylactic Lovenox and given his dramatic improvement, he was felt safe for discharge. His incisions were intact with no cellulitis. He had no fevers, no tachycardia, and his postoperative labs were appropriate. FOLLOWUP APPOINTMENT: In a week. DISPOSITION: Home to self-care. DISCHARGE CONDITION: Good. DISCHARGE INSTRUCTIONS: Given in written and verbal format. DIET: GI soft. MEDICATIONS: He will continue his home medications, and he was given Ultram and Zofran. cc: Kitty Jones MD
== END 2020-01-10 14:38 | disposition home or self-care (01) | DRG 330 ==
LOC: SURHOLD 05:27 → 4N 13:01
PROVIDERS: ADMIT Surgery; ATTEND Surgery